=== PATIENT | female | born 1995 | race Caucasian/White ===

== ENCOUNTER 2016-12-02 21:02 | Emergency (ER) | payer OTHER ==
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
--- NOTE | 2016-12-03 01:44 | ED ORDER SUMMARY ---
..... Patient: KASANDRA HOYOS CM OrderSheet [facility] VisitID: [id number] [place] [address] 21y, F Registration Date/Time: 12/02/2016 ORDER SHEET Weight: 63.9 kg (stated) Allergies: No Known Drug Allergy GENERAL ORDERS: UA-Culture if indicated Urgent (:12/02/2016 SBalde R.N. per protocol) (Ack 22:28 LMuller) (22:31 LMuller) Urine Urgent (:12/02/2016 SBalde R.N. per protocol) (Ack 22:28 LMuller) (22:31 LMuller) CBC w Diff Urgent (23:[facility]) (Ack 23:32 CHategekimana) (0:45 SBalde R.N.) CMP Urgent (:12/02/2016 [facility]) (Ack 23:32 CHategekimana) (0:45 SBalde R.N.) Amylase Urgent (23:[facility] (Ack 23:32 CHategekimana) (0:45 SBalde R.N.) Lipase Urgent (:12/02/2016 [facility]) (Ack 23:32 CHategekimana) (0:45 SBalde R.N.) NPO (:12/02/2016 [facility]) (0:08 SBalde R.N.) US Pelvic Complete w Transvag (history of PCOS) Urgent (23:12/02/2016 [facility] (Ack 23:27 LMuller) (0:45 SBalde R.N.) MEDICATION ORDERS: IV FLUIDS: IV NS : initial bolus 1000 mL (1000 mL/hr), then 500 mL/hr for X2 (NOW) (23:18 12/02/2016 [facility]) (Ack 0:28 RCollier R.N.) (0:51 SBalde R.N.) Dilaudid IV 0.5 mg (HIGH ALERT MEDICATION, NOW) (01:41 12/03/2016 [facility]) (Ack 1:47 RCollier R.N.) (2:00 RCollier R.N.) Zofran IV 4 mg (NOW) (:12/03/2016 [facility]) (Ack 1:47 RCollier R.N.) (2:00 RCollier R.N.) Toradol IV 30 mg (NOW) (:12/03/2016 [facility]) (Ack 1:47 RCollier R.N.) (2:00 RCollier R.N.) ORDER SHEET NOTES: [Electronically signed by Melanie Vu R.N. (02:07 12/03/2016)] [Electronically signed by Rui Ohara DO (03:17 12/03/2016)] [Electronically locked/signed by Melanie Vu R.N. (02:07 12/03/2016)]
--- NOTE | 2016-12-03 01:44 | ED ORDER SUMMARY ---
..... Patient: KASANDRA HOYOS CM OrderSheet [facility] VisitID: [id number] [place] [address] 21y, F Registration Date/Time: 12/02/2016 ORDER SHEET Weight: 63.9 kg (stated) Allergies: No Known Drug Allergy GENERAL ORDERS: UA-Culture if indicated Urgent (:12/02/2016 SBalde R.N. per protocol) (Ack 22:28 LMuller) (22:31 LMuller) Urine Urgent (:12/02/2016 SBalde R.N. per protocol) (Ack 22:28 LMuller) (22:31 LMuller) CBC w Diff Urgent (23:[facility] (Ack 23:32 CHategekimana) (0:45 SBalde R.N.) CMP Urgent (:12/02/2016 [facility]) (Ack 23:32 CHategekimana) (0:45 SBalde R.N.) Amylase Ur[facility] (23:[facility] (Ack 23:32 CHategekimana) (0:45 SBalde R.N.) Lipase Urgent (:12/02/2016 [facility]) (Ack 23:32 CHategekimana) (0:45 SBalde R.N.) NPO (:12/02/2016 [facility]) (0:08 SBalde R.N.) US Pelvic Complete w Transvag (history of PCOS) Urgent (23:[facility]02[facility] (Ack 23:27 LMuller) (0:45 SBalde R.N.) MEDICATION ORDERS: IV FLUIDS: IV NS : initial bolus 1000 mL (1000 mL/hr), then 500 mL/hr for X2 (NOW) (23:18 12/02/2016 [facility]) (Ack 0:28 RCollier R.N.) (0:51 SBalde R.N.) Dilaudid IV 0.5 mg (HIGH ALERT MEDICATION, NOW) (01:41 12/03/2016 [facility]) (Ack 1:47 RCollier R.N.) (2:00 RCollier R.N.) Zofran IV 4 mg (NOW) (:12/03/2016 [facility]) (Ack 1:47 RCollier R.N.) (2:00 RCollier R.N.) Toradol IV 30 mg (NOW) (:12/03/2016 [facility]) (Ack 1:47 RCollier R.N.) (2:00 RCollier R.N.) ORDER SHEET NOTES: [Electronically signed by Melanie Vu R.N. (02:07 12/03/2016)] [Electronically signed by Rui Ohara DO (03:17 12/03/2016)] [Electronically locked/signed by Melanie Vu R.N. (02:07 12/03/2016)]
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
--- NOTE | 2016-12-03 03:18 | ED MED RECONCILIATION SUMMARY ---
Patient: DOV HOYOSSilvia NEGRETE Medication Reconciliation Report [facility] VisitID: [id number] [place] [address] 21y, F Registration Date/Time: 12/02/2016 Weight: 63.9 kg Height/Length: 64 in. BMI: 24.2 ALLERGIES: No Known Drug Allergy The patient's Home Medications are listed below: NONE. The source(s) of the original Home Medication information: patient The following Medications were given to the patient in the Emergency Department: IV NS IV Fluids bolus 0, then 1000 mL/hr, administered: 12/03/2016 12:30:00 AM Zofran [IVP] IVP 4 mg, administered: 12/03/2016 1:53:00 AM Toradol [IVP] IVP 30 mg, administered: 12/03/2016 1:54:00 AM Dilaudid [IVP] IVP 0.5 mg, administered: 12/03/2016 1:55:00 AM The following Medications were prescribed to the patient: Take acetaminophen (Tylenol, Datril, etc.) and ibuprofen (Advil, Nuprin, etc.) according to label instructions. Available over the counter. -- Rui Ohara DO Hydrocodone/APAP 5mg/325mg: take 1 to 2 orally every 6 hours as needed for pain. Dispense fifteen (15). No refills. -- Rui Ohara DO Zofran (orally disintegrating tablets) 4 mg: take 1-2 orally every 8 hours as needed for nausea and vomiting. Dispense ten (10). No refill. Substitution is permissible. -- Rui Ohara DO
--- NOTE | 2016-12-03 03:18 | ED DISCHARGE INSTRUCTIONS ---
Patient: KASANDRA HOYOS CM General Instructions [facility] VisitID: [id number] Anabel MurciaDustin [place] [id number] 21y, F Registration Date/Time: 12/02/2016 Single ruptured simple right ovarian cyst. INSTRUCTIONS Do not work for two days. Drink plenty of fluids. No alcohol until released. Warnings: Further evaluation is necessary in order to recheck abnormal lab, obtain test results, conduct further tests and assess the possibility of serious illness. It is very important to follow up with a physician. SEDATIVE MEDICATION: You were given sedative medication during your visit. Do not drive or operate dangerous machinery. CONTROLLED SUBSTANCE WARNINGS. GENERAL WARNINGS: Return or contact your physician immediately if your condition worsens or changes unexpectedly, if not improving as expected, or if other problems arise. Prescription Medications: Hydrocodone/APAP 5mg/325mg: take 1 to 2 orally every 6 hours as needed for pain. Dispense fifteen (15). No refills. Zofran (orally disintegrating tablets) 4 mg: take 1-2 orally every 8 hours as needed for nausea and vomiting. Dispense ten (10). No refill. Substitution is permissible. OTC Medications: Take acetaminophen (Tylenol, Datril, etc.) and ibuprofen (Advil, Nuprin, etc.) according to label instructions. Available over the counter. Follow-up with: Carlos Alberto Pan MD, [facility], , [facility], [address] [place] [address] Follow up in two days. ADDITIONAL INFORMATION Ovarian Cyst The ovary is a small organ located on each side of the uterus. During each menstrual cycle a tiny egg sac forms in the ovary. If the egg is released but does not occur, this sac usually dissolves. Sometimes, the sac may fill with fluid. It then enlarges into a painful cyst. Usually the cyst will rupture or shrink on its own. In either case, the pain gradually goes away over the next 1-3 days. If the cyst does not shrink or rupture, it may cause continued pain. Home Care: Rest in bed and avoid heavy exertion until you are feeling better. Heat to the lower abdomen usually helps (heating pad or hot packs -- a small towel soaked in hot water). You may use acetaminophen (Tylenol) or ibuprofen (Motrin, Advil) to control pain, unless another pain medicine was prescribed. [NOTE: If you have chronic liver or kidney disease or ever had a stomach ulcer or GI bleeding, talk with your doctor before using these medicines.] Follow Up: See your doctor within the next 2-3 days if your pain doesnt improve. Otherwise, follow up with your doctor after your next period or as directed by our staff. Get Prompt Medical Attention if any of the following occur: Pain worsens or fails to respond to the above measures Fever of 100.4F (38C) or higher, or as directed by your healthcare provider Heavy vaginal bleeding (soaking one pad an hour for three hours) You feel weak or dizzy Fainting Passage of a pink or zhao tissue with menstrual bleeding Pelvic Pain, Uncertain Cause Based on your visit today, the exact cause of your pelvic pain is not certain. But your condition does not appear to be serious at this time. However, the signs of a serious problem may take more time to appear. Therefore, it is important for you to watch for any new symptoms or worsening of your condition. Home Care: Rest until you are feeling better. Avoid sexual intercourse until your pain goes away. You may use acetaminophen (Tylenol) or ibuprofen (Motrin, Advil) to control pain, unless another medicine was prescribed. [NOTE: If you have chronic liver or kidney disease or ever had a stomach ulcer or GI bleeding, talk with your doctor before using these medicines.] Follow Up with your doctor as advised. If a culture test was taken, call in two days for the results. If the culture is positive, you will be given more advice at that time. Otherwise, follow-up with your doctor or this facility as instructed. Get Prompt Medical Attention if any of the following occur: Fever of 100.4F (38C) or higher, or as directed by your healthcare provider Vaginal discharge Worsening pain Weakness, dizziness or fainting Unexpected vaginal bleeding or passage of zhao or white tissue from the vagina Pain that moves to the right lower abdomen Hydrocodone Bitartrate, Acetaminophen Oral tablet What is this medicine? ACETAMINOPHEN; HYDROCODONE (a set a RONDA yolanda fen; justo droe KOE done) is a pain reliever. It is used to treat mild to moderate pain. How should I use this medicine? Take this medicine by mouth. Swallow it with a full glass of water. Follow the directions on the prescription label. If the medicine upsets your stomach, take the medicine with food or milk. Do not take more than you are told to take. Talk to your portfolio strategist regarding the use of this medicine in children. This medicine is not approved for use in children. What side effects may I notice from receiving this medicine? Side effects that you should report to your doctor or health healthcare liaison as soon as possible: allergic reactions like skin rash, itching or hives, swelling of the face, lips, or tongue breathing problems confusion feeling faint or lightheaded, falls stomach pain yellowing of the eyes or skin Side effects that usually do not require medical attention (report to your doctor or health healthcare liaison if they continue or are bothersome): nausea, vomiting stomach upset What may interact with this medicine? alcohol antihistamines isoniazid medicines for depression, anxiety, or psychotic disturbances medicines for sleep muscle relaxants naltrexone narcotic medicines (opiates) for pain phenobarbital ritonavir tramadol What if I miss a dose? If you miss a dose, take it as soon as you can. If it is almost time for your next dose, take only that dose. Do not take double or extra doses. Where should I keep my medicine? Keep out of the reach of children. This medicine can be abused. Keep your medicine in a safe place to protect it from theft. Do not share this medicine with anyone. Selling or giving away this medicine is dangerous and against the law. Store at room temperature between 15 and 30 degrees C (59 and 86 degrees F). Protect from light. Keep container tightly closed. Throw away any unused medicine after the expiration date. Discard unused medicine and used packaging carefully. Pets and children can be harmed if they find used or lost packages. What should I tell my health care provider before I take this medicine? They need to know if you have any of these conditions: brain tumor Crohn's disease, inflammatory bowel disease, or ulcerative colitis drink more than 3 alcohol-containing drinks per day drug abuse or addiction head injury heart or circulation problems kidney disease or problems going to the bathroom liver disease lung disease, asthma, or breathing problems an unusual or allergic reaction to acetaminophen, hydrocodone, other opioid analgesics, other medicines, foods, dyes, or preservatives or trying to get breast-feeding What should I watch for while using this medicine? Tell your doctor or health healthcare liaison if your pain does not go away, if it gets worse, or if you have new or a different type of pain. You may develop tolerance to the medicine. Tolerance means that you will need a higher dose of the medicine for pain relief. Tolerance is normal and is expected if you take the medicine for a long time. Do not suddenly stop taking your medicine because you may develop a severe reaction. Your body becomes used to the medicine. This does NOT mean you are addicted. Addiction is a behavior related to getting and using a drug for a non-medical reason. If you have pain, you have a medical reason to take pain medicine. Your doctor will tell you how much medicine to take. If your doctor wants you to stop the medicine, the dose will be slowly lowered over time to avoid any side effects. You may get drowsy or dizzy when you first start taking the medicine or change doses. Do not drive, use machinery, or do anything that may be dangerous until you know how the medicine affects you. Stand or sit up slowly. There are different types of narcotic medicines (opiates) for pain. If you take more than one type at the same time, you may have more side effects. Give your health care provider a list of all medicines you use. Your doctor will tell you how much medicine to take. Do not take more medicine than directed. Call emergency for help if you have problems breathing. The medicine will cause constipation. Try to have a bowel movement at least every 2 to 3 days. If you do not have a bowel movement for 3 days, call your doctor or health healthcare liaison. Too much acetaminophen can be very dangerous. Do not take Tylenol (acetaminophen) or medicines that contain acetaminophen with this medicine. Many non-prescription medicines contain acetaminophen. Always read the labels carefully. Ondansetron Oral disintegrating tablet What is this medicine? ONDANSETRON (on SYLVESTER se dg) is used to treat nausea and vomiting caused by chemotherapy. It is also used to prevent or treat nausea and vomiting after surgery. How should I use this medicine? These tablets are made to dissolve in the mouth. Do not try to push the tablet through the foil backing. With dry hands, peel away the foil backing and gently remove the tablet. Place the tablet in the mouth and allow it to dissolve, then swallow. While you may take these tablets with water, it is not necessary to do so. Talk to your portfolio strategist regarding the use of this medicine in children. Special care may be needed. What side effects may I notice from receiving this medicine? Side effects that you should report to your doctor or health healthcare liaison as soon as possible: allergic reactions like skin rash, itching or hives, swelling of the face, lips, or tongue breathing problems dizziness fast or irregular heartbeat feeling faint or lightheaded, falls fever and chills swelling of the hands and feet tightness in the chest Side effects that usually do not require medical attention (report to your doctor or health healthcare liaison if they continue or are bothersome): constipation or diarrhea headache What may interact with this medicine? Do not take this medicine with any of the following medications: -apomorphine -cisapride -dofetilide -dronedarone -pimozide -thioridazine -ziprasidone This medicine may also interact with the following medications: -carbamazepine -phenytoin -rifampicin -tramadol -other medicines that prolong the QT interval (cause an abnormal heart rhythm) What if I miss a dose? If you miss a dose, take it as soon as you can. If it is almost time for your next dose, take only that dose. Do not take double or extra doses. Where should I keep my medicine? Keep out of the reach of children. Store between 2 and 30 degrees C (36 and 86 degrees F). Throw away any unused medicine after the expiration date. What should I tell my health care provider before I take this medicine? They need to know if you have any of these conditions: heart disease history of irregular heartbeat liver disease low levels of magnesium or potassium in the blood an unusual or allergic reaction to ondansetron, granisetron, other medicines, foods, dyes, or preservatives or trying to get breast-feeding What should I watch for while using this medicine? Check with your doctor or health healthcare liaison as soon as you can if you have any sign of an allergic reaction. You have been given the following additional information: Ovarian Cyst Pelvic Pain, Unknown Cause Hydrocodone Bitartrate, Acetaminophen Oral tablet Ondansetron Oral disintegrating tablet Do not work for two days. (Electronically signed by Rui Ohara DO 12/03/2016 3:17)
--- NOTE | 2016-12-03 03:18 | ED MAR SUMMARY ---
..... Medication Administration Record [facility] [address] [place] [address] Patient: KASANDRA HOYOS CM Visit ID: [id number] 21y, F Weight: 63.9 kg Height/Length: 64 in BMI: 24.2 ALLERGIES: No Known Drug Allergy Start 00:30 12/03/2016 Lenora Waterman R.N. Medication Administered: IV NS (SALINE), Dose: IV Fluids over 1 hour(s), Rate: 1000 mL/hr, Dispensed: 1000 mL bag, Site: #1. Medication Ordered: IV NS : initial bolus 1000 mL (1000 mL/hr), then 500 mL/hr for X2 (NOW). Given 01:53 12/03/2016 Melanie Vu R.N. Medication Administered: ZOFRAN [IVP] (ONDANSETRON HCL), Dose: 4 mg IVP over 1 minute(s), Site: #1 left AC. Medication Ordered: Zofran IV 4 mg (NOW). Given 01:54 12/03/2016 Melanie Vu R.N. Medication Administered: TORADOL [IVP], Dose: 30 mg IVP over 1 minute(s), Site: #1 left AC. Medication Ordered: Toradol IV 30 mg (NOW). Given 01:55 12/03/2016 Melanie Vu R.N. Medication Administered: DILAUDID [IVP] (HYDROMORPHONE HCL PF), Dose: 0.5 mg IVP over 1 minute(s), Site: #1 left AC. Medication Ordered: Dilaudid IV 0.5 mg (HIGH ALERT MEDICATION, NOW).
--- NOTE | 2016-12-03 03:18 | ED MAR SUMMARY ---
..... Medication Administration Record [facility] [address] [place] [address] Patient: KASANDRA HOYOS CM Visit ID: [id number] 21y, F Weight: 63.9 kg Height/Length: 64 in BMI: 24.2 ALLERGIES: No Known Drug Allergy Start 00:30 12/03/2016 Lenora Waterman R.N. Medication Administered: IV NS (SALINE), Dose: IV Fluids over 1 hour(s), Rate: 1000 mL/hr, Dispensed: 1000 mL bag, Site: #1. Medication Ordered: IV NS : initial bolus 1000 mL (1000 mL/hr), then 500 mL/hr for X2 (NOW). Given 01:53 12/03/2016 Melanie Vu R.N. Medication Administered: ZOFRAN [IVP] (ONDANSETRON HCL), Dose: 4 mg IVP over 1 minute(s), Site: #1 left AC. Medication Ordered: Zofran IV 4 mg (NOW). Given 01:54 12/03/2016 Melanie Vu R.N. Medication Administered: TORADOL [IVP], Dose: 30 mg IVP over 1 minute(s), Site: #1 left AC. Medication Ordered: Toradol IV 30 mg (NOW). Given 01:55 12/03/2016 Melanie Vu R.N. Medication Administered: DILAUDID [IVP] (HYDROMORPHONE HCL PF), Dose: 0.5 mg IVP over 1 minute(s), Site: #1 left AC. Medication Ordered: Dilaudid IV 0.5 mg (HIGH ALERT MEDICATION, NOW).
--- NOTE | 2016-12-03 03:18 | ED MED RECONCILIATION SUMMARY ---
Patient: DOV HOYOSSilvia NEGRETE Medication Reconciliation Report [facility] VisitID: [id number] [place] [address] 21y, F Registration Date/Time: 12/02/2016 Weight: 63.9 kg Height/Length: 64 in. BMI: 24.2 ALLERGIES: No Known Drug Allergy The patient's Home Medications are listed below: NONE. The source(s) of the original Home Medication information: patient The following Medications were given to the patient in the Emergency Department: IV NS IV Fluids bolus 0, then 1000 mL/hr, administered: 12/03/2016 12:30:00 AM Zofran [IVP] IVP 4 mg, administered: 12/03/2016 1:53:00 AM Toradol [IVP] IVP 30 mg, administered: 12/03/2016 1:54:00 AM Dilaudid [IVP] IVP 0.5 mg, administered: 12/03/2016 1:55:00 AM The following Medications were prescribed to the patient: Take acetaminophen (Tylenol, Datril, etc.) and ibuprofen (Advil, Nuprin, etc.) according to label instructions. Available over the counter. -- Rui Ohara DO Hydrocodone/APAP 5mg/325mg: take 1 to 2 orally every 6 hours as needed for pain. Dispense fifteen (15). No refills. -- Rui Ohara DO Zofran (orally disintegrating tablets) 4 mg: take 1-2 orally every 8 hours as needed for nausea and vomiting. Dispense ten (10). No refill. Substitution is permissible. -- Rui Ohara DO
--- NOTE | 2016-12-03 03:18 | ED DISCHARGE INSTRUCTIONS ---
Patient: KASANDRA HOYOS CM General Instructions [facility] VisitID: [id number] [place] [phone] 21y, F Registration Date/Time: 12/02/2016 Single ruptured simple right ovarian cyst. INSTRUCTIONS Do not work for two days. Drink plenty of fluids. No alcohol until released. Warnings: Further evaluation is necessary in order to recheck abnormal lab, obtain test results, conduct further tests and assess the possibility of serious illness. It is very important to follow up with a physician. SEDATIVE MEDICATION: You were given sedative medication during your visit. Do not drive or operate dangerous machinery. CONTROLLED SUBSTANCE WARNINGS. GENERAL WARNINGS: Return or contact your physician immediately if your condition worsens or changes unexpectedly, if not improving as expected, or if other problems arise. Prescription Medications: Hydrocodone/APAP 5mg/325mg: take 1 to 2 orally every 6 hours as needed for pain. Dispense fifteen (15). No refills. Zofran (orally disintegrating tablets) 4 mg: take 1-2 orally every 8 hours as needed for nausea and vomiting. Dispense ten (10). No refill. Substitution is permissible. OTC Medications: Take acetaminophen (Tylenol, Datril, etc.) and ibuprofen (Advil, Nuprin, etc.) according to label instructions. Available over the counter. Follow-up with: Carlos Alberto Pan MD, [facility], , [facility], [address] [place] [address] Follow up in two days. ADDITIONAL INFORMATION Ovarian Cyst The ovary is a small organ located on each side of the uterus. During each menstrual cycle a tiny egg sac forms in the ovary. If the egg is released but does not occur, this sac usually dissolves. Sometimes, the sac may fill with fluid. It then enlarges into a painful cyst. Usually the cyst will rupture or shrink on its own. In either case, the pain gradually goes away over the next 1-3 days. If the cyst does not shrink or rupture, it may cause continued pain. Home Care: Rest in bed and avoid heavy exertion until you are feeling better. Heat to the lower abdomen usually helps (heating pad or hot packs -- a small towel soaked in hot water). You may use acetaminophen (Tylenol) or ibuprofen (Motrin, Advil) to control pain, unless another pain medicine was prescribed. [NOTE: If you have chronic liver or kidney disease or ever had a stomach ulcer or GI bleeding, talk with your doctor before using these medicines.] Follow Up: See your doctor within the next 2-3 days if your pain doesnt improve. Otherwise, follow up with your doctor after your next period or as directed by our staff. Get Prompt Medical Attention if any of the following occur: Pain worsens or fails to respond to the above measures Fever of 100.4F (38C) or higher, or as directed by your healthcare provider Heavy vaginal bleeding (soaking one pad an hour for three hours) You feel weak or dizzy Fainting Passage of a pink or zhao tissue with menstrual bleeding Pelvic Pain, Uncertain Cause Based on your visit today, the exact cause of your pelvic pain is not certain. But your condition does not appear to be serious at this time. However, the signs of a serious problem may take more time to appear. Therefore, it is important for you to watch for any new symptoms or worsening of your condition. Home Care: Rest until you are feeling better. Avoid sexual intercourse until your pain goes away. You may use acetaminophen (Tylenol) or ibuprofen (Motrin, Advil) to control pain, unless another medicine was prescribed. [NOTE: If you have chronic liver or kidney disease or ever had a stomach ulcer or GI bleeding, talk with your doctor before using these medicines.] Follow Up with your doctor as advised. If a culture test was taken, call in two days for the results. If the culture is positive, you will be given more advice at that time. Otherwise, follow-up with your doctor or this facility as instructed. Get Prompt Medical Attention if any of the following occur: Fever of 100.4F (38C) or higher, or as directed by your healthcare provider Vaginal discharge Worsening pain Weakness, dizziness or fainting Unexpected vaginal bleeding or passage of zhao or white tissue from the vagina Pain that moves to the right lower abdomen Hydrocodone Bitartrate, Acetaminophen Oral tablet What is this medicine? ACETAMINOPHEN; HYDROCODONE (a set a RONDA yolanda fen; justo droe KOE done) is a pain reliever. It is used to treat mild to moderate pain. How should I use this medicine? Take this medicine by mouth. Swallow it with a full glass of water. Follow the directions on the prescription label. If the medicine upsets your stomach, take the medicine with food or milk. Do not take more than you are told to take. Talk to your mold closer helper regarding the use of this medicine in children. This medicine is not approved for use in children. What side effects may I notice from receiving this medicine? Side effects that you should report to your doctor or health daycare worker as soon as possible: allergic reactions like skin rash, itching or hives, swelling of the face, lips, or tongue breathing problems confusion feeling faint or lightheaded, falls stomach pain yellowing of the eyes or skin Side effects that usually do not require medical attention (report to your doctor or health daycare worker if they continue or are bothersome): nausea, vomiting stomach upset What may interact with this medicine? alcohol antihistamines isoniazid medicines for depression, anxiety, or psychotic disturbances medicines for sleep muscle relaxants naltrexone narcotic medicines (opiates) for pain phenobarbital ritonavir tramadol What if I miss a dose? If you miss a dose, take it as soon as you can. If it is almost time for your next dose, take only that dose. Do not take double or extra doses. Where should I keep my medicine? Keep out of the reach of children. This medicine can be abused. Keep your medicine in a safe place to protect it from theft. Do not share this medicine with anyone. Selling or giving away this medicine is dangerous and against the law. Store at room temperature between 15 and 30 degrees C (59 and 86 degrees F). Protect from light. Keep container tightly closed. Throw away any unused medicine after the expiration date. Discard unused medicine and used packaging carefully. Pets and children can be harmed if they find used or lost packages. What should I tell my health care provider before I take this medicine? They need to know if you have any of these conditions: brain tumor Crohn's disease, inflammatory bowel disease, or ulcerative colitis drink more than 3 alcohol-containing drinks per day drug abuse or addiction head injury heart or circulation problems kidney disease or problems going to the bathroom liver disease lung disease, asthma, or breathing problems an unusual or allergic reaction to acetaminophen, hydrocodone, other opioid analgesics, other medicines, foods, dyes, or preservatives or trying to get breast-feeding What should I watch for while using this medicine? Tell your doctor or health daycare worker if your pain does not go away, if it gets worse, or if you have new or a different type of pain. You may develop tolerance to the medicine. Tolerance means that you will need a higher dose of the medicine for pain relief. Tolerance is normal and is expected if you take the medicine for a long time. Do not suddenly stop taking your medicine because you may develop a severe reaction. Your body becomes used to the medicine. This does NOT mean you are addicted. Addiction is a behavior related to getting and using a drug for a non-medical reason. If you have pain, you have a medical reason to take pain medicine. Your doctor will tell you how much medicine to take. If your doctor wants you to stop the medicine, the dose will be slowly lowered over time to avoid any side effects. You may get drowsy or dizzy when you first start taking the medicine or change doses. Do not drive, use machinery, or do anything that may be dangerous until you know how the medicine affects you. Stand or sit up slowly. There are different types of narcotic medicines (opiates) for pain. If you take more than one type at the same time, you may have more side effects. Give your health care provider a list of all medicines you use. Your doctor will tell you how much medicine to take. Do not take more medicine than directed. Call emergency for help if you have problems breathing. The medicine will cause constipation. Try to have a bowel movement at least every 2 to 3 days. If you do not have a bowel movement for 3 days, call your doctor or health daycare worker. Too much acetaminophen can be very dangerous. Do not take Tylenol (acetaminophen) or medicines that contain acetaminophen with this medicine. Many non-prescription medicines contain acetaminophen. Always read the labels carefully. Ondansetron Oral disintegrating tablet What is this medicine? ONDANSETRON (on SYLVESTER se dg) is used to treat nausea and vomiting caused by chemotherapy. It is also used to prevent or treat nausea and vomiting after surgery. How should I use this medicine? These tablets are made to dissolve in the mouth. Do not try to push the tablet through the foil backing. With dry hands, peel away the foil backing and gently remove the tablet. Place the tablet in the mouth and allow it to dissolve, then swallow. While you may take these tablets with water, it is not necessary to do so. Talk to your mold closer helper regarding the use of this medicine in children. Special care may be needed. What side effects may I notice from receiving this medicine? Side effects that you should report to your doctor or health daycare worker as soon as possible: allergic reactions like skin rash, itching or hives, swelling of the face, lips, or tongue breathing problems dizziness fast or irregular heartbeat feeling faint or lightheaded, falls fever and chills swelling of the hands and feet tightness in the chest Side effects that usually do not require medical attention (report to your doctor or health daycare worker if they continue or are bothersome): constipation or diarrhea headache What may interact with this medicine? Do not take this medicine with any of the following medications: -apomorphine -cisapride -dofetilide -dronedarone -pimozide -thioridazine -ziprasidone This medicine may also interact with the following medications: -carbamazepine -phenytoin -rifampicin -tramadol -other medicines that prolong the QT interval (cause an abnormal heart rhythm) What if I miss a dose? If you miss a dose, take it as soon as you can. If it is almost time for your next dose, take only that dose. Do not take double or extra doses. Where should I keep my medicine? Keep out of the reach of children. Store between 2 and 30 degrees C (36 and 86 degrees F). Throw away any unused medicine after the expiration date. What should I tell my health care provider before I take this medicine? They need to know if you have any of these conditions: heart disease history of irregular heartbeat liver disease low levels of magnesium or potassium in the blood an unusual or allergic reaction to ondansetron, granisetron, other medicines, foods, dyes, or preservatives or trying to get breast-feeding What should I watch for while using this medicine? Check with your doctor or health daycare worker as soon as you can if you have any sign of an allergic reaction. You have been given the following additional information: Ovarian Cyst Pelvic Pain, Unknown Cause Hydrocodone Bitartrate, Acetaminophen Oral tablet Ondansetron Oral disintegrating tablet Do not work for two days. (Electronically signed by Rui Ohara DO 12/03/2016 3:17)
--- NOTE | 2016-12-03 08:12 | DIAGNOSTIC IMAGING REPORT ---
PROCEDURE: US COMPLETE PELVIC W/TRANSVAG INDICATION: Pelvic pain. Reported history of polycystic ovaries. TECHNIQUE: Transabdominal and endovaginal zhao scale and color Doppler sonographic images of the female pelvis were obtained. 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 COMPARISON: None. FINDINGS: TRANSABDOMINAL SCANS: Uterus is of normal size (7.8 x 2.7 cm). Kidneys are normal (right 10.9 cm, left 9.5 cm). TRANSVAGINAL SCANS: Uterus is retroflexed on transvaginal scans. Endometrial thickness is normal (7 mm). Right ovary is of normal size 94.0 cm) with small follicular cysts (largest 1.5 cm). Left ovary is of normal size 93.5 cm) with small follicular cyst. Small amount of free fluid.. IMPRESSION: 1. Small amount of free fluid. Occult ruptured ovarian cyst as the most likely consideration. 2. Retroflexed uterus (normal variant). 3. Otherwise negative pelvic ultrasound. 4. Findings discussed with Dr. Ohara.
== END 2016-12-03 02:05 | disposition home or self-care (01) ==
LOC: ED SRH 21:02
DX: N83.291 Other ovarian cyst, right side (principal)
CPT/HCPCS: 90004; 90100; 92235; 92530; 93070; 95059

== ENCOUNTER 2016-12-07 06:23 | Emergency (ER) | payer OTHER ==
--- NOTE | 2016-12-07 08:22 | ED ORDER SUMMARY ---
..... Patient: KASANDRA HOYOS CM OrderSheet [facility] VisitID: [id number] [address] [place] [address] 21y, F Registration Date/Time: 12/07/2016 ORDER SHEET Weight: 63.5 kg (stated) Allergies: No Known Drug Allergy GENERAL ORDERS: MEDICATION ORDERS: GI Cocktail WHITE PO 50 mL (NOW) (06:52 12/07/2016 Maddie RUBIO) (Ack 6:53 HKone R.N.) (7:00 HKone R.N.) Carafate PO 20 ml (NOW) (08:05 12/07/2016 Maddie RUBIO) (Ack 8:14 Santy R.N.) (8:22 Santy R.N.) Protonix PO 40 mg (NOW) (08:05 12/07/2016 Maddie RUBIO) (Ack 8:14 Santy R.N.) (8:22 Santy R.N.) IV FLUIDS: ORDER SHEET NOTES: [Electronically signed by Anna Johnson R.N. (08:55 12/07/2016)] [Electronically signed by Vincenzo Barros MD (23:12 12/08/2016)] [Electronically locked/signed by Anna Johnson R.N. (08:55 12/07/2016)]
--- NOTE | 2016-12-07 08:22 | ED NURSING NOTES ---
Clinical Report - Nurses [facility] [address] [place] [address] 12/07/2016 6:24 Patient: KASANDRA HOYOS CM TRIAGE Triage time 0629. Acuity: LEVEL 3. Chief Complaint: ABDOMINAL PAIN and NAUSEA. KARIS COMA SCORE: Karis Coma Scale: 15- eyes open spontaneously (4); best verbal response- oriented x 4 (5); best motor response- obeys commands (6). --06:37 Wanda Sun R.N. 06:29 12/07/16. BP: 121/81. HR: 90. RR: 18 (unlabored). O2 saturation: 100% on room air. Temp: 97.9 F (oral). Pain level now: 01/10. --06:37 Wanda Sun R.N. Weight: 63.5 kg stated. Height/Length: 64 inches Per Patient. BMI: 24. --06:29 Wanda Sun R.N. Medications Zofran Oral. --06:30 Wanda Sun R.N. Medication/allergy information source: the patient. --06:37 Wanda Sun R.N. Allergies No Known Drug Allergy. --06:30 Wanda Sun R.N. History Arrived by private vehicle. Historian: patient. Accompanied by friend. Primary physician (Maxim). ( pt returns for recheck due continued abdominal pain and nausea. 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 Onset. (5 days ago). She has had nausea, vomiting and abdominal pain. Treatment VALUATION MANAGER: (Zofran). PAST MEDICAL HX: Last normal menstrual period- mid October 2016. SOCIAL HX: Never smoker. No alcohol use or drug use. ABUSE ASSESSMENT: No report of abuse. FALL RISK ASSESSMENT: Fall risk assessment completed. No fall risk identified. NUTRITIONAL RISK ASSESSMENT: The nutritional risk assessment revealed no deficiencies. FUNCTIONAL ASSESSMENT: Functional assessment: no impairments noted. LEARNING NEEDS ASSESSMENT: The learning needs assessment revealed no barriers. SKIN INTEGRITY ASSESSMENT: Skin integrity risk assessment completed. No skin integrity risk identified. --06:37 Wanda Sun R.N. ADDITIONAL SURGERIES: no known surgeries. Interventions ID band on patient. To treatment room. --06:37 Wanda Sun R.N. PHYSICAL ASSESSMENT 06:38 pt c/o generalized abdominal pain. Ambulatory to room. GENERAL / NEURO / PSYCH: Alert. Oriented X 4. Appears in pain. HEENT: Mucous membranes are pink. RESPIRATORY: Respirations not labored. GI / : The patient has had nausea. SKIN: Skin is warm and dry. --07:01 Wanda Sun R.N. NURSING PROGRESS NOTES Patient gowned. Head of bed elevated. Two patient identifiers checked. Side rails up x 1. Bed placed in lowest position. Brakes of bed on. Patient ready for evaluation. --06:38 Wanda Sun R.N. 07:00 12/07/2016 Maalox (Magnesium-Aluminum) PO Oral Suspension 30 mL given. Allergies verified and confirmed 5 rights. --07:00 Wanda Sun R.N. 07:00 12/07/2016 Lidocaine Viscous PO Oral Suspension 20 mL given. Allergies verified and confirmed 5 rights. --07:00 Wanda Sun R.N. Care transferred and report given (EMILY Castillo). --07:12 Wanda Sun R.N. 07:39 12/07/16. BP: 107/78. HR: 67. RR: 18. O2 saturation: 99% on room air. Pain level now: 01/10. --07:41 Anna Johnson R.N. 07:41 12/07/16. The patient is resting quietly. Overall patient status is the same- she states feels better (has had no N/V since being in ED). SKIN: Skin is warm and dry. --07:41 Anna Johnson R.N. 08:22 12/07/2016 Protonix (Pantoprazole Sodium) PO Tablets 40 mg given. Allergies verified and confirmed 5 rights. --08:22 Anna Johnson R.N. 08:22 12/07/2016 Carafate (Sucralfate) PO Oral Suspension 2 gm given. Allergies verified and confirmed 5 rights. --08:22 Anna Johnson R.N. 08:50. Reassessment after medication administered. She is calm and resting quietly. Overall patient status is improved- she states feels better. SKIN: Skin is warm and dry. --08:55 Anna Johnson R.N. DISPOSITION / DISCHARGE Departure time: 0850. Condition at departure: improved. No learning barriers present. Discharge instructions provided and reviewed with the patient. Reviewed medication(s). Prescription(s) given to the patient. Patient verbalized understanding. Written instructions provided in Indonesian. The patient was discharged home and accompanied by market relationship manager. She left the Emergency Department ambulatory and via private vehicle. FALL RISK ASSESSMENT: Fall risk assessment completed. No fall risk identified. --08:54 Anna Johnson R.N. 08:53 12/07/16. BP: 111/73. HR: 69. RR: 16. O2 saturation: 98% on room air. Pain level now: 12/10. --08:54 Anna Johnson R.N. Locked/Released at 12/07/2016 8:55 by Anna Johnson R.N.
--- NOTE | 2016-12-07 08:22 | ED ORDER SUMMARY ---
..... Patient: KASANDRA HOYOS CM OrderSheet [facility] VisitID: [id number] [address] [place] [address] 21y, F Registration Date/Time: 12/07/2016 ORDER SHEET Weight: 63.5 kg (stated) Allergies: No Known Drug Allergy GENERAL ORDERS: MEDICATION ORDERS: GI Cocktail WHITE PO 50 mL (NOW) (06:52 12/07/2016 Maddie RUBIO) (Ack 6:53 HKone R.N.) (7:00 HKone R.N.) Carafate PO 20 ml (NOW) (08:05 12/07/2016 Maddie RUBIO) (Ack 8:14 Santy R.N.) (8:22 Santy R.N.) Protonix PO 40 mg (NOW) (08:05 12/07/2016 Maddie RUBIO) (Ack 8:14 Santy R.N.) (8:22 Santy R.N.) IV FLUIDS: ORDER SHEET NOTES: [Electronically signed by Anna Johnson R.N. (08:55 12/07/2016)] [Electronically signed by Vincenzo Barros MD (23:12 12/08/2016)] [Electronically locked/signed by Anna Johnson R.N. (08:55 12/07/2016)]
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
--- NOTE | 2016-12-07 08:22 | ED NURSING NOTES ---
Clinical Report - Nurses [facility] [address] [place] [address] 12/07/2016 6:24 Patient: KASANDRA HOYOS CM TRIAGE Triage time 0629. Acuity: LEVEL 3. Chief Complaint: ABDOMINAL PAIN and NAUSEA. KARIS COMA SCORE: Karis Coma Scale: 15- eyes open spontaneously (4); best verbal response- oriented x 4 (5); best motor response- obeys commands (6). --06:37 Wanda Sun R.N. 06:29 12/07/16. BP: 121/81. HR: 90. RR: 18 (unlabored). O2 saturation: 100% on room air. Temp: 97.9 F (oral). Pain level now: 01/10. --06:37 Wanda Sun R.N. Weight: 63.5 kg stated. Height/Length: 64 inches Per Patient. BMI: 24. --06:29 Wanda Sun R.N. Medications Zofran Oral. --06:30 Wanda Sun R.N. Medication/allergy information source: the patient. --06:37 Wanda Sun R.N. Allergies No Known Drug Allergy. --06:30 Wanda Sun R.N. History Arrived by private vehicle. Historian: patient. Accompanied by friend. Primary physician (Maxim). ( pt returns for recheck due continued abdominal pain and nausea. 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 Onset. (5 days ago). She has had nausea, vomiting and abdominal pain. 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 PAST MEDICAL HX: Last normal menstrual period- mid October 2016. SOCIAL HX: Never smoker. No alcohol use or drug use. ABUSE ASSESSMENT: No report of abuse. FALL RISK ASSESSMENT: Fall risk assessment completed. No fall risk identified. NUTRITIONAL RISK ASSESSMENT: The nutritional risk assessment revealed no deficiencies. FUNCTIONAL ASSESSMENT: Functional assessment: no impairments noted. LEARNING NEEDS ASSESSMENT: The learning needs assessment revealed no barriers. SKIN INTEGRITY ASSESSMENT: Skin integrity risk assessment completed. No skin integrity risk identified. --06:37 Wanda Sun R.N. ADDITIONAL SURGERIES: no known surgeries. Interventions ID band on patient. To treatment room. --06:37 Wanda Sun R.N. PHYSICAL ASSESSMENT 06:38 pt c/o generalized abdominal pain. Ambulatory to room. GENERAL / NEURO / PSYCH: Alert. Oriented X 4. Appears in pain. HEENT: Mucous membranes are pink. RESPIRATORY: Respirations not labored. GI / : The patient has had nausea. SKIN: Skin is warm and dry. --07:01 Wanda Sun R.N. NURSING PROGRESS NOTES Patient gowned. Head of bed elevated. Two patient identifiers checked. Side rails up x 1. Bed placed in lowest position. Brakes of bed on. Patient ready for evaluation. --06:38 Wanda Sun R.N. 07:00 12/07/2016 Maalox (Magnesium-Aluminum) PO Oral Suspension 30 mL given. Allergies verified and confirmed 5 rights. --07:00 Wanda Sun R.N. 07:00 12/07/2016 Lidocaine Viscous PO Oral Suspension 20 mL given. Allergies verified and confirmed 5 rights. --07:00 Wanda Sun R.N. Care transferred and report given (EMILY Castillo). --07:12 Wanda Sun R.N. 07:39 12/07/16. BP: 107/78. HR: 67. RR: 18. O2 saturation: 99% on room air. Pain level now: 01/10. --07:41 Anna Johnson R.N. 07:41 12/07/16. The patient is resting quietly. Overall patient status is the same- she states feels better (has had no N/V since being in ED). SKIN: Skin is warm and dry. --07:41 Anna Johnson R.N. 08:22 12/07/2016 Protonix (Pantoprazole Sodium) PO Tablets 40 mg given. Allergies verified and confirmed 5 rights. --08:22 Anna Johnson R.N. 08:22 12/07/2016 Carafate (Sucralfate) PO Oral Suspension 2 gm given. Allergies verified and confirmed 5 rights. --08:22 Anna Johnson R.N. 08:50. Reassessment after medication administered. She is calm and resting quietly. Overall patient status is improved- she states feels better. SKIN: Skin is warm and dry. --08:55 Anna Johnson R.N. DISPOSITION / DISCHARGE Departure time: 0850. Condition at departure: improved. No learning barriers present. Discharge instructions provided and reviewed with the patient. Reviewed medication(s). Prescription(s) given to the patient. Patient verbalized understanding. Written instructions provided in Yi. The patient was discharged home and accompanied by help desk analyst. She left the Emergency Department ambulatory and via private vehicle. FALL RISK ASSESSMENT: Fall risk assessment completed. No fall risk identified. --08:54 Anna Johnson R.N. 08:53 12/07/16. BP: 111/73. HR: 69. RR: 16. O2 saturation: 98% on room air. Pain level now: 12/10. --08:54 Anna Johnson R.N. Locked/Released at 12/07/2016 8:55 by Anna Johnson R.N.
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
--- NOTE | 2016-12-08 23:12 | ED DISCHARGE INSTRUCTIONS ---
Patient: KASANDRA HOYOS CM General Instructions [facility] VisitID: [id number] [place] [address] 21y, F Registration Date/Time: 12/07/2016 Acute gastritis. No alcoholic gastritis or hemorrhagic gastritis. INSTRUCTIONS Avoid alcohol and NSAIDS. Examples of NSAIDS include aspirin, ibuprofen (Advil) and naproxen (Aleve). Avoid fatty and spicy foods. Other diet: avoid caffeine. Warnings: Further evaluation is necessary. GENERAL WARNINGS: Return or contact your physician immediately if your condition worsens or changes unexpectedly, if not improving as expected, or if other problems arise. Your Current Medications: CONTINUE TAKING THE FOLLOWING MEDICATIONS: Zofran Oral. Prescription Medications: Zofran (orally disintegrating tablets) 4 mg: take 1 orally every 6 hours as needed for nausea. Dispense ten (10). No refill. Substitution is permissible. Carafate 1 gm tablets: take 1 orally four times daily (1 hour before meals and at bedtime). Dispense sixty (60). No refills. Substitution is permissible. Prilosec 40 mg capsules: take 1 capsule orally every day for 10 days. Dispense ten (10). No refill. Follow-up: Follow up with your doctor in five days. Call for the next available appointment. Understanding of the discharge instructions verbalized by patient. ADDITIONAL INFORMATION Gastritis Versus Ulcer (No Antibiotic Tx) The symptoms of gastritis and peptic ulcer are very similar. Both can cause a dull ache or burning pain in the upper abdomen. Other symptoms include nausea, vomiting, loss of appetite, and belching or bloating. Blood in the vomit or stools (red or black) is a sign of bleeding in the stomach. This requires immediate medical attention. A Peptic Ulcer is an open sore in the lining of the stomach or duodenum (upper intestine). The most common cause of peptic ulcer disease is a bacterial infection (H pylori) in the stomach. Another common cause is taking anti-inflammatory medications (such as ibuprofen, prednisone, and aspirin). Gastritis is an irritation of the stomach lining. It can be acute (recent) or chronic (lasting a long time). Gastritis can be caused by overuse of alcohol or anti-inflammatory medications (such as aspirin, ibuprofen, prednisone). H pyloriinfection can also cause chronic gastritis. Tests for H pyloriare used to screen for bacterial infection. If no infection is found, ulcer and gastritis can be treated by stopping the cause, such as anti-inflammatory medications, alcohol, caffeine, and tobacco, and treating with antacids plus an acid noemy medication. If H pylori infection is found, antibiotics will be prescribed along with an acid noemy. Persons 55 years and older may undergo other tests before treatment is started. Two common tests are used to evaluate your symptoms. An upper GI series is an x-ray taken after you drink a chalky liquid called barium. This coats the stomach and allows an ulcer to show up on the x-ray. Another test is called endoscopy during which a long thin tube called an endoscope is passed down your throat to the stomach. A camera at the end of the scope allows the doctor to view inside the stomach to check the cause of your symptoms. Home Care: Take the prescribed acid noemy medication for the full course of treatment even if you begin to feel better sooner. This medication can take up to several days to fully control your symptoms. If you cant afford the prescribed medication, you can try rqcd-jeg-kdzlltu acid blockers, such as Pepcid AC, Tagamet, Zantac, or Aciphex. If these do not relieve your symptoms, a stronger acid-noemy can be tried, such as Prilosec OTC. If you have been prescribed an antibiotic to treat H pyloriinfection, finish the full course of medication. Do so even if you begin to feel better sooner. If you stop the medication too soon, the infection can return and be harder to treat. You can use antacids, such as Tums, Rolaids, Mylanta, or Maalox, for pain. This will be useful the first few days after starting acid blockers when the blockers havent started working yet. Follow the directions on the label. Liquid antacids may work better than tablets. Note that antacids can interfere with absorption of certain medications. Specifically, do not take Tagamet (cimetidine), Zantac (ranitidine), or Carafate (sucralfate) within 1 hour of taking an antacid. Talk with your pharmacist if you have any questions. Although foods do not cause an ulcer, symptoms can be worsened by certain foods. Limit or avoid fatty, fried, and spicy foods, as well as coffee, chocolate, mint, and foods with high acid content such as tomatoes and citrus fruit and juices (orange, grapefruit, lemon). Avoid alcohol, caffeine, and tobacco, which can delay healing. Avoid aspirin and anti-inflammatory medications such as ibuprofen (Advil, Motrin) and naproxen (Naprosyn, Aleve). Acetaminophen (Tylenol) is safe to use. Do not take more than the amount listed on the label. Follow Up with your doctor or as advised. Further testing may be needed. If you do not begin to improve over the next 4 days, contact your doctor. If you had tests, youll be notified of any new findings that affect your care. Get Prompt Medical Attention if any of the following occur: Stomach pain gets worse or moves to the lower right abdomen (appendix area) Chest pain appears or gets worse, or spreads to the back, neck, shoulder, or arm Frequent vomiting (cant keep down liquids) Blood in the stool or vomit (red or black in color) Feeling weak or dizzy, fainting, or trouble breathing Fever of 100.4F (38C) or higher, or as directed by your healthcare provider [place] Diet A bland diet is used for patients with an upset stomach. It consists of foods that are mild and easy to digest. It is better to eat small frequent meals rather than three large meals a day. BEVERAGES OK: Fruit juices, non-caffeinated teas and coffee, non-carbonated ram AVOID: Carbonated beverage, caffeinated tea and coffee, all alcoholic beverages BREAD OK: Refined white, wheat or rye bread, olya or soda crackers, [place] toast, plain rolls, bagels AVOID: Whole-grain bread CEREAL OK: Refined cereals: cooked or ready to eat AVOID: Whole grain cereals and granola, or those containing bran, seeds or nuts DESSERTS OK: Peanut butter and all others except those to "avoid" AVOID: Chocolate, cocoa, coconut, popcorn, nuts, seeds, jam, marmalade FRUITS OK: Canned, cooked, frozen or fresh fruits without seeds or tough skin AVOID: Olives, skin and seeds of fruit MEATS OK: All fresh or preserved meat, fish and fowl AVOID: Any that are prepared with those spices to "avoid" CHEESE & EGGS OK: Eggs, cottage cheese, cream cheese, other cheeses AVOID: All cheeses made with those spices to "avoid" POTATOES & PASTA OK: Potato, rice, macaroni, noodles, spaghetti AVOID: None SOUPS OK: All soups without heavy seasoning AVOID: Soups made with those spices to "avoid" VEGETABLES OK: Canned, cooked, fresh or frozen mildly flavored vegetables without seeds, skins or coarse fiber AVOID: Vegetables prepared with those spices to "avoid"; skin and seeds of vegetables and those with coarse fiber SPICES OK: Salt, lemon and [place] juice, vinegar, all extracts, justus, cinnamon, thyme, mace, allspice, paprika AVOID: [place] powder, cloves, pepper, seed spices, garlic, gravy pickles, highly seasoned salad dressings Ondansetron Oral disintegrating tablet What is this medicine? ONDANSETRON (on SYLVESTER se dg) is used to treat nausea and vomiting caused by chemotherapy. It is also used to prevent or treat nausea and vomiting after surgery. How should I use this medicine? These tablets are made to dissolve in the mouth. Do not try to push the tablet through the foil backing. With dry hands, peel away the foil backing and gently remove the tablet. Place the tablet in the mouth and allow it to dissolve, then swallow. While you may take these tablets with water, it is not necessary to do so. Talk to your hypertrichologist regarding the use of this medicine in children. Special care may be needed. What side effects may I notice from receiving this medicine? Side effects that you should report to your doctor or health patient care as soon as possible: allergic reactions like skin rash, itching or hives, swelling of the face, lips, or tongue breathing problems dizziness fast or irregular heartbeat feeling faint or lightheaded, falls fever and chills swelling of the hands and feet tightness in the chest Side effects that usually do not require medical attention (report to your doctor or health patient care if they continue or are bothersome): constipation or diarrhea headache What may interact with this medicine? Do not take this medicine with any of the following medications: -apomorphine -cisapride -dofetilide -dronedarone -pimozide -thioridazine -ziprasidone This medicine may also interact with the following medications: -carbamazepine -phenytoin -rifampicin -tramadol -other medicines that prolong the QT interval (cause an abnormal heart rhythm) What if I miss a dose? If you miss a dose, take it as soon as you can. If it is almost time for your next dose, take only that dose. Do not take double or extra doses. Where should I keep my medicine? Keep out of the reach of children. Store between 2 and 30 degrees C (36 and 86 degrees F). Throw away any unused medicine after the expiration date. What should I tell my health care provider before I take this medicine? They need to know if you have any of these conditions: heart disease history of irregular heartbeat liver disease low levels of magnesium or potassium in the blood an unusual or allergic reaction to ondansetron, granisetron, other medicines, foods, dyes, or preservatives or trying to get breast-feeding What should I watch for while using this medicine? Check with your doctor or health patient care as soon as you can if you have any sign of an allergic reaction. Omeprazole Magnesium Gastro-resistant tablet What is this medicine? OMEPRAZOLE (oh ME pray zol) prevents the production of acid in the stomach. It is used to treat the symptoms of heartburn. You can buy this medicine without a prescription. This product is not for long-term use, unless otherwise directed by your doctor or health patient care. How should I use this medicine? Take this medicine by mouth. Follow the directions on the product label. If you are taking this medicine without a prescription, take one tablet every day. Do not use for longer than 14 days or repeat a course of treatment more often than every 4 months unless directed by a doctor or healthcare professional. Take your dose at regular intervals every 24 hours. Swallow the tablet whole with a drink of water. Do not crush, break or chew. This medicine works best if taken on an empty stomach 30 minutes before breakfast. If you are using this medicine with the prescription of your doctor or healthcare professional, follow the directions you were given. Do not take your medicine more often than directed. Talk to your hypertrichologist regarding the use of this medicine in children. Special care may be needed. What side effects may I notice from receiving this medicine? Side effects that you should report to your doctor or health patient care as soon as possible: allergic reactions like skin rash, itching or hives, swelling of the face, lips, or tongue bone, muscle or joint pain breathing problems chest pain or chest tightness dark yellow or brown urine diarrhea dizziness fast, irregular heartbeat feeling faint or lightheaded fever or sore throat muscle spasm palpitations redness, blistering, peeling or loosening of the skin, including inside the mouth seizures tremors unusual bleeding or bruising unusually weak or tired yellowing of the eyes or skin Side effects that usually do not require medical attention (Report these to your doctor or health patient care if they continue or are bothersome.): constipation dry mouth headache loose stools nausea What may interact with this medicine? Do not take this medicine with any of the following medications: atazanavir clopidogrel nelfinavir This medicine may also interact with the following medications: ampicillin certain medicines for anxiety or sleep certain medicines that treat or prevent blood clots like warfarin cyclosporine diazepam digoxin disulfiram iron salts phenytoin prescription medicine for fungal or yeast infection like itraconazole, ketoconazole, voriconazole saquinavir tacrolimus What if I miss a dose? If you miss a dose, take it as soon as you can. If it is almost time for your next dose, take only that dose. Do not take double or extra doses. Where should I keep my medicine? Keep out of the reach of children. Store at room temperature between 20 and 25 degrees C (68 and 77 degrees F). Protect from light and moisture. Throw away any unused medicine after the expiration date. What should I tell my health care provider before I take this medicine? They need to know if you have any of these conditions: black or bloody stools chest pain difficulty swallowing have had heartburn for over 3 months have heartburn with dizziness, lightheadedness or sweating liver disease stomach pain unexplained weight loss vomiting with blood wheezing an unusual or allergic reaction to omeprazole, other medicines, foods, dyes, or preservatives or trying to get breast-feeding What should I watch for while using this medicine? It can take several days before your heartburn gets better. Check with your doctor or health patient care if your condition does not start to get better, or if it gets worse. Do not treat diarrhea with over the counter products. Contact your doctor if you have diarrhea that lasts more than 2 days or if it is severe and watery. Do not treat yourself for heartburn with this medicine for more than 14 days in a row. You should only use this medicine for a 2-week treatment period once every 4 months. If your symptoms return shortly after your therapy is complete, or within the 4 month time frame, call your doctor or health patient care. You have been given the following additional information: Gastritis Vs. Ulcer Diet, [place] (Adult) Ondansetron Oral disintegrating tablet Omeprazole Magnesium Gastro-resistant tablet (Electronically signed by Vincenzo Barros MD 12/08/2016 23:12)
--- NOTE | 2016-12-08 23:12 | ED MAR SUMMARY ---
..... Medication Administration Record [facility] [address] [place] [address] Patient: KASANDRA HOYOS CM Visit ID: [id number] 21y, F Weight: 63.5 kg Height/Length: 64 in BMI: 24 ALLERGIES: No Known Drug Allergy Given 07:12/07/2016 Wanda Sun RDiogenes Medication Administered: MAALOX [PO] (MAGNESIUM-ALUMINUM), Dose: 30 mL Oral Suspension PO. Medication Ordered: GI Cocktail WHITE PO 50 mL (NOW). Given 07:12/07/2016 Wanda Sun R.N. Medication Administered: LIDOCAINE VISCOUS [PO], Dose: 20 mL Oral Suspension PO. Medication Ordered: GI Cocktail WHITE PO 50 mL (NOW). Given 08:12/07/2016 Anna Johnson RDiogenes Medication Administered: CARAFATE [PO] (SUCRALFATE), Dose: 2 gm Oral Suspension PO. Medication Ordered: Carafate PO 20 ml (NOW). Given 08:12/07/2016 Anna Johnson RUmmNUmm Medication Administered: PROTONIX [PO] (PANTOPRAZOLE SODIUM), Dose: 40 mg Tablets PO. Medication Ordered: Protonix PO 40 mg (NOW).
--- NOTE | 2016-12-08 23:12 | ED DISCHARGE INSTRUCTIONS ---
Patient: KASANDRA HOYOS CM General Instructions [facility] VisitID: [id number] [place] [address] 21y, F Registration Date/Time: 12/07/2016 Acute gastritis. No alcoholic gastritis or hemorrhagic gastritis. INSTRUCTIONS Avoid alcohol and NSAIDS. Examples of NSAIDS include aspirin, ibuprofen (Advil) and naproxen (Aleve). Avoid fatty and spicy foods. Other diet: avoid caffeine. Warnings: Further evaluation is necessary. GENERAL WARNINGS: Return or contact your physician immediately if your condition worsens or changes unexpectedly, if not improving as expected, or if other problems arise. Your Current Medications: CONTINUE TAKING THE FOLLOWING MEDICATIONS: Zofran Oral. Prescription Medications: Zofran (orally disintegrating tablets) 4 mg: take 1 orally every 6 hours as needed for nausea. Dispense ten (10). No refill. Substitution is permissible. Carafate 1 gm tablets: take 1 orally four times daily (1 hour before meals and at bedtime). Dispense sixty (60). No refills. Substitution is permissible. Prilosec 40 mg capsules: take 1 capsule orally every day for 10 days. Dispense ten (10). No refill. Follow-up: Follow up with your doctor in five days. Call for the next available appointment. Understanding of the discharge instructions verbalized by patient. ADDITIONAL INFORMATION Gastritis Versus Ulcer (No Antibiotic Tx) The symptoms of gastritis and peptic ulcer are very similar. Both can cause a dull ache or burning pain in the upper abdomen. Other symptoms include nausea, vomiting, loss of appetite, and belching or bloating. Blood in the vomit or stools (red or black) is a sign of bleeding in the stomach. This requires immediate medical attention. A Peptic Ulcer is an open sore in the lining of the stomach or duodenum (upper intestine). The most common cause of peptic ulcer disease is a bacterial infection (H pylori) in the stomach. Another common cause is taking anti-inflammatory medications (such as ibuprofen, prednisone, and aspirin). Gastritis is an irritation of the stomach lining. It can be acute (recent) or chronic (lasting a long time). Gastritis can be caused by overuse of alcohol or anti-inflammatory medications (such as aspirin, ibuprofen, prednisone). H pyloriinfection can also cause chronic gastritis. Tests for H pyloriare used to screen for bacterial infection. If no infection is found, ulcer and gastritis can be treated by stopping the cause, such as anti-inflammatory medications, alcohol, caffeine, and tobacco, and treating with antacids plus an acid noemy medication. If H pylori infection is found, antibiotics will be prescribed along with an acid noemy. Persons 55 years and older may undergo other tests before treatment is started. Two common tests are used to evaluate your symptoms. An upper GI series is an x-ray taken after you drink a chalky liquid called barium. This coats the stomach and allows an ulcer to show up on the x-ray. Another test is called endoscopy during which a long thin tube called an endoscope is passed down your throat to the stomach. A camera at the end of the scope allows the doctor to view inside the stomach to check the cause of your symptoms. Home Care: Take the prescribed acid noemy medication for the full course of treatment even if you begin to feel better sooner. This medication can take up to several days to fully control your symptoms. If you cant afford the prescribed medication, you can try [id number] acid blockers, such as Pepcid AC, Tagamet, Zantac, or Aciphex. If these do not relieve your symptoms, a stronger acid-noemy can be tried, such as Prilosec OTC. If you have been prescribed an antibiotic to treat H pyloriinfection, finish the full course of medication. Do so even if you begin to feel better sooner. If you stop the medication too soon, the infection can return and be harder to treat. You can use antacids, such as Tums, Rolaids, Mylanta, or Maalox, for pain. This will be useful the first few days after starting acid blockers when the blockers havent started working yet. Follow the directions on the label. Liquid antacids may work better than tablets. Note that antacids can interfere with absorption of certain medications. Specifically, do not take Tagamet (cimetidine), Zantac (ranitidine), or Carafate (sucralfate) within 1 hour of taking an antacid. Talk with your pharmacist if you have any questions. Although foods do not cause an ulcer, symptoms can be worsened by certain foods. Limit or avoid fatty, fried, and spicy foods, as well as coffee, chocolate, mint, and foods with high acid content such as tomatoes and citrus fruit and juices (orange, grapefruit, lemon). Avoid alcohol, caffeine, and tobacco, which can delay healing. Avoid aspirin and anti-inflammatory medications such as ibuprofen (Advil, Motrin) and naproxen (Naprosyn, Aleve). Acetaminophen (Tylenol) is safe to use. Do not take more than the amount listed on the label. Follow Up with your doctor or as advised. Further testing may be needed. If you do not begin to improve over the next 4 days, contact your doctor. If you had tests, youll be notified of any new findings that affect your care. Get Prompt Medical Attention if any of the following occur: Stomach pain gets worse or moves to the lower right abdomen (appendix area) Chest pain appears or gets worse, or spreads to the back, neck, shoulder, or arm Frequent vomiting (cant keep down liquids) Blood in the stool or vomit (red or black in color) Feeling weak or dizzy, fainting, or trouble breathing Fever of 100.4F (38C) or higher, or as directed by your healthcare provider [place] Diet A bland diet is used for patients with an upset stomach. It consists of foods that are mild and easy to digest. It is better to eat small frequent meals rather than three large meals a day. BEVERAGES OK: Fruit juices, non-caffeinated teas and coffee, non-carbonated ram AVOID: Carbonated beverage, caffeinated tea and coffee, all alcoholic beverages BREAD OK: Refined white, wheat or rye bread, olya or soda crackers, [place] toast, plain rolls, bagels AVOID: Whole-grain bread CEREAL OK: Refined cereals: cooked or ready to eat AVOID: Whole grain cereals and granola, or those containing bran, seeds or nuts DESSERTS OK: Peanut butter and all others except those to "avoid" AVOID: Chocolate, cocoa, coconut, popcorn, nuts, seeds, jam, marmalade FRUITS OK: Canned, cooked, frozen or fresh fruits without seeds or tough skin AVOID: Olives, skin and seeds of fruit MEATS OK: All fresh or preserved meat, fish and fowl AVOID: Any that are prepared with those spices to "avoid" CHEESE & EGGS OK: Eggs, cottage cheese, cream cheese, other cheeses AVOID: All cheeses made with those spices to "avoid" POTATOES & PASTA OK: Potato, rice, macaroni, noodles, spaghetti AVOID: None SOUPS OK: All soups without heavy seasoning AVOID: Soups made with those spices to "avoid" VEGETABLES OK: Canned, cooked, fresh or frozen mildly flavored vegetables without seeds, skins or coarse fiber AVOID: Vegetables prepared with those spices to "avoid"; skin and seeds of vegetables and those with coarse fiber SPICES OK: Salt, lemon and [place] juice, vinegar, all extracts, justus, cinnamon, thyme, mace, allspice, paprika AVOID: [place] powder, cloves, pepper, seed spices, garlic, gravy pickles, highly seasoned salad dressings Ondansetron Oral disintegrating tablet What is this medicine? ONDANSETRON (on SYLVESTER se dg) is used to treat nausea and vomiting caused by chemotherapy. It is also used to prevent or treat nausea and vomiting after surgery. How should I use this medicine? These tablets are made to dissolve in the mouth. Do not try to push the tablet through the foil backing. With dry hands, peel away the foil backing and gently remove the tablet. Place the tablet in the mouth and allow it to dissolve, then swallow. While you may take these tablets with water, it is not necessary to do so. Talk to your real estate agency licensee regarding the use of this medicine in children. Special care may be needed. What side effects may I notice from receiving this medicine? Side effects that you should report to your doctor or health care navigator as soon as possible: allergic reactions like skin rash, itching or hives, swelling of the face, lips, or tongue breathing problems dizziness fast or irregular heartbeat feeling faint or lightheaded, falls fever and chills swelling of the hands and feet tightness in the chest Side effects that usually do not require medical attention (report to your doctor or health care navigator if they continue or are bothersome): constipation or diarrhea headache What may interact with this medicine? Do not take this medicine with any of the following medications: -apomorphine -cisapride -dofetilide -dronedarone -pimozide -thioridazine -ziprasidone This medicine may also interact with the following medications: -carbamazepine -phenytoin -rifampicin -tramadol -other medicines that prolong the QT interval (cause an abnormal heart rhythm) What if I miss a dose? If you miss a dose, take it as soon as you can. If it is almost time for your next dose, take only that dose. Do not take double or extra doses. Where should I keep my medicine? Keep out of the reach of children. Store between 2 and 30 degrees C (36 and 86 degrees F). Throw away any unused medicine after the expiration date. What should I tell my health care provider before I take this medicine? They need to know if you have any of these conditions: heart disease history of irregular heartbeat liver disease low levels of magnesium or potassium in the blood an unusual or allergic reaction to ondansetron, granisetron, other medicines, foods, dyes, or preservatives or trying to get breast-feeding What should I watch for while using this medicine? Check with your doctor or health care navigator as soon as you can if you have any sign of an allergic reaction. Omeprazole Magnesium Gastro-resistant tablet What is this medicine? OMEPRAZOLE (oh ME pray zol) prevents the production of acid in the stomach. It is used to treat the symptoms of heartburn. You can buy this medicine without a prescription. This product is not for long-term use, unless otherwise directed by your doctor or health care navigator. How should I use this medicine? Take this medicine by mouth. Follow the directions on the product label. If you are taking this medicine without a prescription, take one tablet every day. Do not use for longer than 14 days or repeat a course of treatment more often than every 4 months unless directed by a doctor or healthcare professional. Take your dose at regular intervals every 24 hours. Swallow the tablet whole with a drink of water. Do not crush, break or chew. This medicine works best if taken on an empty stomach 30 minutes before breakfast. If you are using this medicine with the prescription of your doctor or healthcare professional, follow the directions you were given. Do not take your medicine more often than directed. Talk to your real estate agency licensee regarding the use of this medicine in children. Special care may be needed. What side effects may I notice from receiving this medicine? Side effects that you should report to your doctor or health care navigator as soon as possible: allergic reactions like skin rash, itching or hives, swelling of the face, lips, or tongue bone, muscle or joint pain breathing problems chest pain or chest tightness dark yellow or brown urine diarrhea dizziness fast, irregular heartbeat feeling faint or lightheaded fever or sore throat muscle spasm palpitations redness, blistering, peeling or loosening of the skin, including inside the mouth seizures tremors unusual bleeding or bruising unusually weak or tired yellowing of the eyes or skin Side effects that usually do not require medical attention (Report these to your doctor or health care navigator if they continue or are bothersome.): constipation dry mouth headache loose stools nausea What may interact with this medicine? Do not take this medicine with any of the following medications: atazanavir clopidogrel nelfinavir This medicine may also interact with the following medications: ampicillin certain medicines for anxiety or sleep certain medicines that treat or prevent blood clots like warfarin cyclosporine diazepam digoxin disulfiram iron salts phenytoin prescription medicine for fungal or yeast infection like itraconazole, ketoconazole, voriconazole saquinavir tacrolimus What if I miss a dose? If you miss a dose, take it as soon as you can. If it is almost time for your next dose, take only that dose. Do not take double or extra doses. Where should I keep my medicine? Keep out of the reach of children. Store at room temperature between 20 and 25 degrees C (68 and 77 degrees F). Protect from light and moisture. Throw away any unused medicine after the expiration date. What should I tell my health care provider before I take this medicine? They need to know if you have any of these conditions: black or bloody stools chest pain difficulty swallowing have had heartburn for over 3 months have heartburn with dizziness, lightheadedness or sweating liver disease stomach pain unexplained weight loss vomiting with blood wheezing an unusual or allergic reaction to omeprazole, other medicines, foods, dyes, or preservatives or trying to get breast-feeding What should I watch for while using this medicine? It can take several days before your heartburn gets better. Check with your doctor or health care navigator if your condition does not start to get better, or if it gets worse. Do not treat diarrhea with over the counter products. Contact your doctor if you have diarrhea that lasts more than 2 days or if it is severe and watery. Do not treat yourself for heartburn with this medicine for more than 14 days in a row. You should only use this medicine for a 2-week treatment period once every 4 months. If your symptoms return shortly after your therapy is complete, or within the 4 month time frame, call your doctor or health care navigator. You have been given the following additional information: Gastritis Vs. Ulcer Diet, [place] (Adult) Ondansetron Oral disintegrating tablet Omeprazole Magnesium Gastro-resistant tablet (Electronically signed by Vincenzo Barros MD 12/08/2016 23:12)
--- NOTE | 2016-12-08 23:12 | ED MED RECONCILIATION SUMMARY ---
Patient: KASANDRA HOYOS CADEN Medication Reconciliation Report [facility] VisitID: [id number] [place] [address] 21y, F Registration Date/Time: 12/07/2016 Weight: 63.5 kg Height/Length: 64 in. BMI: 24.0 ALLERGIES: No Known Drug Allergy The patient's Home Medications are listed below: CONTINUE TAKING THE FOLLOWING MEDICATIONS: Zofran Oral The source(s) of the original Home Medication information: patient The following Medications were given to the patient in the Emergency Department: Maalox [PO] PO 30 mL, administered: 12/07/2016 7:00:00 AM Lidocaine Viscous [PO] PO 20 mL, administered: 12/07/2016 7:00:00 AM Protonix [PO] PO 40 mg, administered: 12/07/2016 8:22:00 AM Carafate [PO] PO 2 gm, administered: 12/07/2016 8:22:00 AM The following Medications were prescribed to the patient: Zofran (orally disintegrating tablets) 4 mg: take 1 orally every 6 hours as needed for nausea. Dispense ten (10). No refill. Substitution is permissible. -- Vincenzo Barros MD Carafate 1 gm tablets: take 1 orally four times daily (1 hour before meals and at bedtime). Dispense sixty (60). No refills. Substitution is permissible. -- Vincenzo Barros MD Prilosec 40 mg capsules: take 1 capsule orally every day for 10 days. Dispense ten (10). No refill. -- Vincenzo Barros MD
--- NOTE | 2016-12-08 23:12 | ED MED RECONCILIATION SUMMARY ---
Patient: KASANDRA HOYOS CADEN Medication Reconciliation Report [facility] VisitID: [id number] [place] [address] 21y, F Registration Date/Time: 12/07/2016 Weight: 63.5 kg Height/Length: 64 in. BMI: 24.0 ALLERGIES: No Known Drug Allergy The patient's Home Medications are listed below: CONTINUE TAKING THE FOLLOWING MEDICATIONS: Zofran Oral The source(s) of the original Home Medication information: patient The following Medications were given to the patient in the Emergency Department: Maalox [PO] PO 30 mL, administered: 12/07/2016 7:00:00 AM Lidocaine Viscous [PO] PO 20 mL, administered: 12/07/2016 7:00:00 AM Protonix [PO] PO 40 mg, administered: 12/07/2016 8:22:00 AM Carafate [PO] PO 2 gm, administered: 12/07/2016 8:22:00 AM The following Medications were prescribed to the patient: Zofran (orally disintegrating tablets) 4 mg: take 1 orally every 6 hours as needed for nausea. Dispense ten (10). No refill. Substitution is permissible. -- Vincenzo Barros MD Carafate 1 gm tablets: take 1 orally four times daily (1 hour before meals and at bedtime). Dispense sixty (60). No refills. Substitution is permissible. -- Vincenzo Barros MD Prilosec 40 mg capsules: take 1 capsule orally every day for 10 days. Dispense ten (10). No refill. -- Vincenzo Barros MD
--- NOTE | 2016-12-08 23:12 | ED MAR SUMMARY ---
..... Medication Administration Record [facility] [address] [place] [address] Patient: KASANDRA HOYOS CM Visit ID: [id number] 21y, F Weight: 63.5 kg Height/Length: 64 in BMI: 24 ALLERGIES: No Known Drug Allergy Given 07:12/07/2016 Wanda Sun RDiogenes Medication Administered: MAALOX [PO] (MAGNESIUM-ALUMINUM), Dose: 30 mL Oral Suspension PO. Medication Ordered: GI Cocktail WHITE PO 50 mL (NOW). Given 07:12/07/2016 Wanda Sun R.N. Medication Administered: LIDOCAINE VISCOUS [PO], Dose: 20 mL Oral Suspension PO. Medication Ordered: GI Cocktail WHITE PO 50 mL (NOW). Given 08:12/07/2016 Anna Johnson RDiogenes Medication Administered: CARAFATE [PO] (SUCRALFATE), Dose: 2 gm Oral Suspension PO. Medication Ordered: Carafate PO 20 ml (NOW). Given 08:12/07/2016 Anna Johnson RUmmNUmm Medication Administered: PROTONIX [PO] (PANTOPRAZOLE SODIUM), Dose: 40 mg Tablets PO. Medication Ordered: Protonix PO 40 mg (NOW).
== END 2016-12-07 08:50 | disposition home or self-care (01) ==
LOC: ED SRH 06:23
DX: K29.00 Acute gastritis without bleeding (principal)

== ENCOUNTER 2016-12-09 17:37 | Outpatient (CLI) | payer OTHER | END 2016-12-09 23:00 | LOC: LAB SRH 17:37 | DX: R11.0 Nausea (principal) | CPT/HCPCS: 90004; 90148; 90469 ==

== ENCOUNTER → 2016-12-12 | Outpatient (CLI) | payer OTHER | LOC: LAB SRH 12:13 | DX: R11.0 Nausea (principal); Z11.3 Encounter for screening for infections with a predominantly sexual mode of transmission | CPT/HCPCS: 91227; 91228 ==